=== PATIENT | female | born 1985 | race Caucasian/White ===

== ENCOUNTER 2017-09-08 19:17 | Outpatient (CLI) | payer OTHER ==
[~2017-09-08] VITALS: Ht 149.9 cm; Wt 77.3 kg
[~2017-09-08 19:17] MED LIST: LBT100 PO; MTR600X PO
[2017-09-08 19:34] VITALS: Ht 149.9 cm; Wt 77.3 kg
[2017-09-08] MEDS ORDERED: PREN-83 (19:34)
[2017-09-08] MEDS ORDERED: ACET-1311 PO (19:34)
[2017-09-08 20:34] LABS: BASO % 0.3 %; BASO ABS # 0.03 K/uL (0-0.2); EOS % 1.2 %; EOS ABS # 0.12 K/uL (0-0.5); HEMATOCRIT 32.4 % (37-47); HEMOGLOBIN 10.9 g/dL (12.0-16.0); IG# 0.06 K/uL (0.00-0.02); LYMPH % 27.3 %; LYMPH ABS # 2.77 K/uL (1.2-3.4); MEAN CELL VOLUME 84.4 fL (80-100); MEAN CORPUSCULAR HEMOGLOBIN 28.4 pg (25-34); MEAN CORPUSCULAR HGB CONC 33.6 g/dl (32-36); MEAN PLATELET VOLUME 10.1 fL (7.4-10.4); MONO % 8.6 %; MONO ABS # 0.87 K/uL (0.11-0.59); NEUT ABS # 6.31 K/uL (1.4-6.5); PLATELET COUNT 215 K/uL (130-400); RED CELL DISTRIBUTION WIDTH CV 13.9 % (11.5-14.5); RED CELL DISTRIBUTION WIDTH SD 42.5 fL (36.4-46.3); WHITE BLOOD COUNT 10.16 K/uL (4.8-10.8)
[2017-09-08] MEDS ORDERED: ACETAMINOPHEN/CODEINE 300/30MG TAB PO ONE ×2 (21:15→21:23)
== END 2017-09-09 00:53 | disposition home or self-care (01) ==
LOC: C.LD 19:17 → C.OPB 19:17
PROVIDERS: ATTEND Obstetrics & Gynecology
DX: O99.89 Other specified diseases and conditions complicating pregnancy, childbirth and the puerperium (principal); M54.9 Dorsalgia, unspecified; O36.8190 Decreased fetal movements, unspecified trimester, not applicable or unspecified; Z3A.00 Weeks of gestation of pregnancy not specified

== ENCOUNTER 2017-09-17 14:54 | Emergency (ER) | payer OTHER ==
[~2017-09-17] VITALS: Ht 149.9 cm; Wt 78.6 kg
[~2017-09-17 14:54] MED LIST changes: +ACET-1311 PO; -LBT100 PO; -MTR600X PO
[2017-09-17 15:11] VITALS: TEMP 36.9; Ht 149.9 cm; Wt 78.6 kg
[2017-09-17 15:57] LABS: BASO % 0.1 %; BASO ABS # 0.01 K/uL (0-0.2); EOS % 0.8 %; EOS ABS # 0.07 K/uL (0-0.5); HEMATOCRIT 32.4 % (37-47); HEMOGLOBIN 10.9 g/dL (12.0-16.0); IG# 0.03 K/uL (0.00-0.02); LYMPH % 22.6 %; LYMPH ABS # 2.06 K/uL (1.2-3.4); MEAN CELL VOLUME 83.3 fL (80-100); MEAN CORPUSCULAR HGB CONC 33.6 g/dl (32-36); MEAN PLATELET VOLUME 10.2 fL (7.4-10.4); MONO % 6.9 %; MONO ABS # 0.63 K/uL (0.11-0.59); NEUT % 69.3 %; NEUT ABS # 6.32 K/uL (1.4-6.5); PLATELET COUNT 232 K/uL (130-400); RED CELL DISTRIBUTION WIDTH CV 14.1 % (11.5-14.5); RED CELL DISTRIBUTION WIDTH SD 42.5 fL (36.4-46.3); WHITE BLOOD COUNT 9.12 K/uL (4.8-10.8)
[2017-09-17 16:11] LABS: INR 0.9 (0.9-1.1); PTT PATIENT 24.3 SECONDS (21.0-31.0)
[2017-09-17 16:18] LABS: ALBUMIN 2.2 gm/dl (3.4-5.0); ALT/SGPT 13 U/L (12-78); AST/SGOT 12 U/L (15-37); BLOOD UREA NITROGEN 8 mg/dl (7-18); CALCIUM 9.1 mg/dl (8.5-10.1); CARBON DIOXIDE 19 mmol/L (21-32); CREATININE 0.54 mg/dl (0.60-1.20); GLUCOSE 84 mg/dl (70-99); LIPASE 201 U/L (73-393); POTASSIUM 3.4 mmol/L (3.5-5.1); SODIUM 136 mmol/L (136-145)
[2017-09-17 16:21] LABS: ALKALINE PHOSPHATASE 110 U/L (45-117)
--- NOTE | 2017-09-17 16:57 | EMERGENCY ROOM VISIT NOTE ---
History Report prepared by Raimundo: Marin Horan Under the Supervision of: Dr. Felix Lopez M.D. First contact with patient: 15:14 Chief Complaint: SHORTNESS OF BREATH Stated Complaint: SOB, REFERRED TO R/O PE History of Present Illness The patient is a 32 year old female who presents to the Emergency Room with complaints of persistent shortness of breath that began this morning while the patient was taking a shower. The patient states that it was difficult to shower secondary to her shortness of breath. She denies any associated chest pain, cough, or lower extremity pain. There were no traumatic accidents that could have caused this pain. The patient is currently 35 weeks . She is P: 3 A:3. The patient notes that she is having Douglas-Jim contractions currently. She has never had this shortness of breath with previous pregnancies. Source of History: patient Onset: This morning Position: chest Quality: other (Shortness of breath) Timing: other (Persistent) Modifying Factors (Worsening): other (Exertion (showering made it worse)) Associated Symptoms: No cough, No chest pain Review of Systems See HPI for pertinent positives & negatives. A total of 10 systems reviewed and were otherwise negative. Past Medical & Surgical Medical Problems: (1) Backache (2) High blood pressure affecting in third trimester, antepartum (3) (4) Uterine contractions at greater than 20 weeks of gestation Old medical records were reviewed. Nurse's notes were reviewed and I agree with. Family History No pertinent family history Social History Smoking Status: Never Smoker Alcohol Use: none Occupation Status: unemployed Current/Historical Medications Scheduled Vit W/ Ferrous Fumara (), 1 TAB PO DAILY Allergies Coded Allergies: No Known Allergies (Verified , ?, 09/17/17) Physical Exam Vital Signs Date Time Temp Pulse Resp B/P (MAP) Pulse Ox O2 Delivery O2 Flow Rate FiO2 09/17/17 17:49 66 18 114/74 98 Room Air 09/17/17 15:11 36.9 95 22 133/85 98 Room Air Physical Exam General: Non-ill appearing young female in no acute distress. HEENT: Normal cephalic atraumatic. Pupils are equal round and reactive to light. Extraocular movements are intact. Oropharynx is pink with moist mucous membranes. No swelling of the mouth lips or tongue. Neck: Supple with a midline trachea. No meningeal signs or stiffness, no JVD or bruits. No Stridor. Chest: Clear to auscultation bilaterally. No wheezes or rhonchi. There is mild tachypnea with movement Heart: regular rate and rhythm. Abdomen: Soft nontender, Gravid uterus, without rebound guarding or rigidity. Extremities: No cyanosis clubbing or edema. No calf tenderness or assymetry Spine/Back. Non tender to palpation. No CVA tenderness Skin: Good turgor without rashes. Neurologic exam: Cranial nerves two through 12 are intact. Motor and sensation are intact and symmetrical throughout. Medical Decision & Procedures ER Provider Diagnostic Interpretation: Radiology results as stated below per my review and radiologist interpretation: (CHEST FOR PE) ANGIO WITH CT DOSE: 254.67 mGy.cm HISTORY: 32 years-old Female presents with acute shortness of breath with TECHNIQUE: Multiple CTA images of the chest were obtained after the intravenous administration of 85 ml Optiray 320. Coronal and sagittal MIPS were obtained from the axial data set and were submitted for review. A dose lowering technique was utilized adhering to the principles of ALARA. COMPARISON: None. FINDINGS: CTA: Heart is normal in size without pericardial effusion. Thoracic aorta is normal in course and caliber without aneurysm or dissection. Imaged great vessels appear to be patent. The pulmonary arterial tree is opacified to level of the segmental branches and demonstrates no focal filling defects to suggest pulmonary thromboembolic disease. The distal segmental and subsegmental branches are not well opacified secondary to contrast bolus timing. CT CHEST: Thyroid is homogeneous without dominant nodule. Mildly prominent nonenlarged bilateral axillary lymph nodes are seen measuring up to 7 mm in short axis. There is mild residual thymic tissue of the anterior mediastinum. No pathologically enlarged lymph nodes of the chest identified. There is no pneumothorax, pleural effusion or focal airspace consolidation. Central airways appear patent. Imaged upper abdominal structures demonstrate no acute abnormality. Soft tissues and breast parenchyma appear unremarkable. Bones appear intact and within normal limits. IMPRESSION: No acute intrathoracic abnormality identified, specifically no acute aortic pathology or evidence of pulmonary thromboembolic disease. The above report was generated using voice recognition software. It may contain grammatical, syntax or spelling errors. Electronically signed by: Sriram Norman M.D. 09/17/2017 5:18 PM Dictated Date/Time: 09/17/2017 5:14 PM Laboratory Results 09/17/17 15:41 Red Blood Count 3.89, Mean Corpuscular Volume 83.3, Mean Corpuscular Hemoglobin 28.0, Mean Corpuscular Hemoglobin Concent 33.6, Mean Platelet Volume 10.2, Neutrophils (%) (Auto) 69.3, Lymphocytes (%) (Auto) 22.6, Monocytes (%) (Auto) 6.9, Eosinophils (%) (Auto) 0.8, Basophils (%) (Auto) 0.1, Neutrophils # (Auto) 6.32, Lymphocytes # (Auto) 2.06, Monocytes # (Auto) 0.63, Eosinophils # (Auto) 0.07, Basophils # (Auto) 0.01 09/17/17 15:41 Test 09/17/17 15:41 White Blood Count 9.12 K/uL (4.8-10.8) Red Blood Count 3.89 M/uL (4.2-5.4) Hemoglobin 10.9 g/dL (12.0-16.0) Hematocrit 32.4 % (37-47) Mean Corpuscular Volume 83.3 fL (80-100) Mean Corpuscular Hemoglobin 28.0 pg (25-34) Mean Corpuscular Hemoglobin Concent 33.6 g/dl (32-36) Platelet Count 232 K/uL (130-400) Mean Platelet Volume 10.2 fL (7.4-10.4) Neutrophils (%) (Auto) 69.3 % Lymphocytes (%) (Auto) 22.6 % Monocytes (%) (Auto) 6.9 % Eosinophils (%) (Auto) 0.8 % Basophils (%) (Auto) 0.1 % Neutrophils # (Auto) 6.32 K/uL (1.4-6.5) Lymphocytes # (Auto) 2.06 K/uL (1.2-3.4) Monocytes # (Auto) 0.63 K/uL (0.11-0.59) Eosinophils # (Auto) 0.07 K/uL (0-0.5) Basophils # (Auto) 0.01 K/uL (0-0.2) RDW Standard Deviation 42.5 fL (36.4-46.3) RDW Coefficient of Variation 14.1 % (11.5-14.5) Immature Granulocyte % (Auto) 0.3 % Immature Granulocyte # (Auto) 0.03 K/uL (0.00-0.02) Prothrombin Time 9.7 SECONDS (9.0-12.0) Prothromb Time International Ratio 0.9 (0.9-1.1) Activated Partial Thromboplast Time 24.3 SECONDS (21.0-31.0) Partial Thromboplastin Ratio 0.9 D-Dimer 990 ug/L FEU (0-500) Urine Color YELLOW Urine Appearance CLEAR (CLEAR) Urine pH 7.5 (4.5-7.5) Urine Specific [place] 1.013 (1.000-1.030) Urine Protein NEG (NEG) Urine Glucose (UA) NEG (NEG) Urine Ketones 1+ (NEG) Urine Occult Blood NEG (NEG) Urine Nitrite NEG (NEG) Urine Bilirubin NEG (NEG) Urine Urobilinogen NEG (NEG) Urine Leukocyte Esterase TRACE (NEG) Urine WBC (Auto) 1-5 /hpf (0-5) Urine RBC (Auto) 0-4 /hpf (0-4) Urine Hyaline Casts (Auto) 1-5 /lpf (0-5) Urine Epithelial Cells (Auto) >30 /lpf (0-5) Urine Bacteria (Auto) NEG (NEG) Anion Gap 13.0 mmol/L (3-11) Est Creatinine Clear Calc Drug Dose 135.5 ml/min Estimated GFR () 144.7 Estimated GFR (Non- 124.9 BUN/Creatinine Ratio 15.6 (10-20) Calcium Level 9.1 mg/dl (8.5-10.1) Total Bilirubin 0.2 mg/dl (0.2-1) Direct Bilirubin < 0.1 mg/dl (0-0.2) Aspartate Amino Transf (AST/SGOT) 12 U/L (15-37) Alanine Aminotransferase (ALT/SGPT) 13 U/L (12-78) Alkaline Phosphatase 110 U/L (45-117) Troponin I < 0.015 ng/ml (0-0.045) Total Protein 7.0 gm/dl (6.4-8.2) Albumin 2.2 gm/dl (3.4-5.0) Lipase 201 U/L (73-393) Laboratory studies as stated above per my review. ECG Per My Interpretation Indication: SOB/dyspnea Rate (beats per minute): 72 Rhythm: sinus with SA Findings: other (Mp PVCs, no STD/NANCY) Comparison ECG Date: no prior available ED Course 1516: Past medical records reviewed. The patient was evaluated in room B6, and a complete history and physical examination were performed. 1636: The patient's D-dimer was elevated. I will order a Chest CT. The patient is in agreement. 1747: I discussed the case with Dr. Chao VIDAL. He agrees with the treatment plan. 175: Upon reevaluation, the patient is resting in bed. I discussed the results and treatment plan with her. She verbalized agreement of the treatment plan. The patient was discharged home. Medical Decision Differential Diagnosis includes; cardiac disease, infection, preeclampsia, shortness of breath due to . This patient comes in as described above. She was placed in room B6. She is 35 weeks and has shortness of breath which is primarily dyspnea on exertion. She has no abdominal pain. there has been no fall or trauma. She has had no cough or infectious type symptoms. She has had no gush of fluids or anything to suggest contractions. She did have preeclampsia during her last but has had nosymptoms to suggest this. IV access established. EKG was obtained which does not show any acute ischemic changes or ectopy. Multiple blood testing was obtained. Her d-dimer was mildly elevated in the 900 range. I discussed this with the patient and her and I recommend we do a CAT scan. There is risk with doing the CAT scan to the mother and child with the radiation primarily but there is also risk of missing a pulmonary embolism. The CAT scan was obtained and we did shield the patient he freely consented prior to doing the CAT scan. Fortunately, the CAT scan was unremarkable the patient appears stable. She has no evidence that she has preeclampsia at this point, she has no protein in her urine. She has nothing to suggest acute coronary syndrome or infection. I did discuss case to Dr. Pang and they will follow-up with her this week. She should return to ER if : worsening of symptoms, any new problems or concerns. Medication Reconcilliation Current Medication List: was personally reviewed by me Blood Pressure Screening Patient's blood pressure: Elevated blood pressure Consults Time Called: 1740 Consulting Physician: Dr. Chao VIDAL Returned Call: 1746 I discussed the case with Dr. Chao VIDAL. He agrees with the treatment plan. Impression Primary Impression: SOB (shortness of breath) Additional Impression: Scribe Attestation The scribe's documentation has been prepared under my direction and personally reviewed by me in its entirety. I confirm that the note above accurately reflects all work, treatment, procedures, and medical decision making performed by me. Departure Information Dispostion Home / Self-Care Referrals No Doctor, Assigned (PCP) Forms HOME CARE DOCUMENTATION FORM, IMPORTANT VISIT INFORMATION Patient Instructions My [facility] Additional Instructions Rest. Return if: Worsening of symptoms, chest pain, fever, vaginal bleeding or discharge, contractions, any problems or concerns Follow-up with your doctor in 1-2 days for recheck Problem Qualifiers
[2017-09-17] MEDS ORDERED: OPTIRAY 320 IV PRN (17:15)
--- NOTE | 2017-09-17 17:19 | DIAGNOSTIC IMAGING REPORT ---
(CHEST FOR PE) ANGIO WITH CT DOSE: 254.67 mGy.cm HISTORY: 32 years-old Female presents with acute shortness of breath with TECHNIQUE: Multiple CTA images of the chest were obtained after the intravenous administration of 85 ml Optiray 320. Coronal and sagittal MIPS were obtained from the axial data set and were submitted for review. A dose lowering technique was utilized adhering to the principles of ALARA. COMPARISON: None. FINDINGS: CTA: Heart is normal in size without pericardial effusion. Thoracic aorta is normal in course and caliber without aneurysm or dissection. Imaged great vessels appear to be patent. The pulmonary arterial tree is opacified to level of the segmental branches and demonstrates no focal filling defects to suggest pulmonary thromboembolic disease. The distal segmental and subsegmental branches are not well opacified secondary to contrast bolus timing. CT CHEST: Thyroid is homogeneous without dominant nodule. Mildly prominent nonenlarged bilateral axillary lymph nodes are seen measuring up to 7 mm in short axis. There is mild residual thymic tissue of the anterior mediastinum. No pathologically enlarged lymph nodes of the chest identified. There is no pneumothorax, pleural effusion or focal airspace consolidation. Central airways appear patent. Imaged upper abdominal structures demonstrate no acute abnormality. Soft tissues and breast parenchyma appear unremarkable. Bones appear intact and within normal limits. IMPRESSION: No acute intrathoracic abnormality identified, specifically no acute aortic pathology or evidence of pulmonary thromboembolic disease. The above report was generated using voice recognition software. It may contain grammatical, syntax or spelling errors. Electronically signed by: Sriram Norman M.D. 09/17/2017 5:18 PM Dictated Date/Time: 09/17/2017 5:14 PM
[2017-09-17 17:49] VITALS: BP 114/74; PULSE 66; O2SAT 98
[2017-09-17] MEDS ORDERED: PREN-83 PO (19:34)
== END 2017-09-17 18:04 | disposition home or self-care (01) ==
LOC: C.EDB 14:55
DX: O99.513 Diseases of the respiratory system complicating pregnancy, third trimester (principal); R06.02 Shortness of breath; Z3A.35 35 weeks gestation of pregnancy

== ENCOUNTER 2017-09-25 10:46 | Emergency (ER) | payer OTHER ==
[~2017-09-25] VITALS: Ht 149.9 cm; Wt 79.0 kg
[~2017-09-25 10:46] MED LIST changes: -ACET-1311 PO; +PREN-83 PO
[2017-09-25 10:56] VITALS: TEMP 36.6; Ht 149.9 cm; Wt 79.0 kg
[2017-09-25 12:32] LABS: BASO % 0.1 %; BASO ABS # 0.01 K/uL (0-0.2); EOS % 1.6 %; EOS ABS # 0.13 K/uL (0-0.5); HEMATOCRIT 35.7 % (37-47); IG# 0.03 K/uL (0.00-0.02); LYMPH % 23.7 %; LYMPH ABS # 1.92 K/uL (1.2-3.4); MEAN CELL VOLUME 84.4 fL (80-100); MEAN CORPUSCULAR HEMOGLOBIN 28.4 pg (25-34); MEAN CORPUSCULAR HGB CONC 33.6 g/dl (32-36); MONO % 6.4 %; MONO ABS # 0.52 K/uL (0.11-0.59); NEUT % 67.8 %; NEUT ABS # 5.48 K/uL (1.4-6.5); PLATELET COUNT 247 K/uL (130-400); RED CELL DISTRIBUTION WIDTH CV 14.2 % (11.5-14.5); WHITE BLOOD COUNT 8.09 K/uL (4.8-10.8)
--- NOTE | 2017-09-25 12:41 | DIAGNOSTIC IMAGING REPORT ---
CHEST 2 VIEWS ROUTINE CLINICAL HISTORY: sob recent ct pe neg with same symptoms dyspnea COMPARISON STUDY: No previous studies for comparison. FINDINGS: The bones soft tissues and hemidiaphragms are normal. The cardiomediastinal silhouette is normal. The lungs are clear. The pulmonary vasculature is normal. IMPRESSION: Negative chest. The above report was generated using voice recognition software. It may contain grammatical, syntax or spelling errors. Electronically signed by: Sal Putnam M.D. 09/25/2017 12:40 PM Dictated Date/Time: 09/25/2017 12:39 PM
[2017-09-25 12:50] LABS: ALBUMIN 2.6 gm/dl (3.4-5.0); ALT/SGPT 11 U/L (12-78); AST/SGOT 12 U/L (15-37); BLOOD UREA NITROGEN 6 mg/dl (7-18); CALCIUM 9.3 mg/dl (8.5-10.1); CARBON DIOXIDE 23 mmol/L (21-32); CREATININE 0.44 mg/dl (0.60-1.20); GLUCOSE 61 mg/dl (70-99); LIPASE 180 U/L (73-393); POTASSIUM 3.5 mmol/L (3.5-5.1); SODIUM 136 mmol/L (136-145)
[2017-09-25 12:55] LABS: ALKALINE PHOSPHATASE 140 U/L (45-117); TOTAL PROTEIN 7.6 gm/dl (6.4-8.2)
--- NOTE | 2017-09-25 14:09 | DIAGNOSTIC IMAGING REPORT ---
VENOUS DOPPLER LWR EXT BILA HISTORY: Pain. Edema. le swelling COMPARISON STUDY: None. FINDINGS: There is normal compressibility, flow, and augmentation within the bilateral lower extremity deep venous systems. IMPRESSION: No DVT within the right or left lower extremity. The above report was generated using voice recognition software. It may contain grammatical, syntax or spelling errors. Electronically signed by: Sal Putnam M.D. 09/25/2017 2:08 PM Dictated Date/Time: 09/25/2017 2:06 PM
[2017-09-25 14:32] VITALS: BP 118/75; PULSE 89; O2SAT 99
--- NOTE | 2017-09-25 18:37 | EMERGENCY ROOM VISIT NOTE ---
History Report prepared by Raimundo: Kayleigh Montes De Oca Under the Supervision of: Dr. Chavez Levi D.O. First contact with patient: 11:49 Chief Complaint: SHORTNESS OF BREATH Stated Complaint: SOB - 36 WKS Nursing Triage Summary: Pt reports she has been SOB x1 week. Pt is 36 weeks . Last week she had a CT to rule out a PE and it was negative. Pt was at [facility] this morning and they sent her to be evaluated in ER. Pt is c/o itchiness, reports she had a liver profile drawn at [facility], but results will not be back until tomorrow. Denies contractions. Denies swelling. Denies pain. History of Present Illness The patient is a 32 year old female who presents to the Emergency Room with complaints of constant shortness of breath for the past two weeks. The patient is currently 36 weeks . She is /A3. She has been feeling short of breath for two weeks. She was seen in the ED on 09/17/17 for these symptoms. She had a chest CT at that time which showed a normal aorta and was negative for PE. The patient had an appointment with her ob-online community manager this morning and was still feeling short of breath. The fetus was monitored and was doing fine. She was sent back to the ED today for further evaluation of her symptoms. Her symptoms are better with rest and worsened with exertion. Yesterday she started to feel very itchy all over but denies any other new symptoms. She has no shortness of breath currently with rest. She has had a non-complicated thus far. She denies any chest pain. She is able to lay down without significant shortness of breath. Shortness of breath has not changed over the past 2 weeks. It has not worsened or improved at all. The patient has had preeclampsia with her last but states that her current has been uncomplicated. Pt denies headache, change in vision, fevers, cough, rhinorrhea, chest pain, nausea, vomiting, diarrhea, abdominal pain, pain with urination, melena, abnormal vaginal bleeding or discharge. She denies any recent illness, and any personal history of blood clots or asthma. She denies any family history of heart disease. Source of History: patient Onset: 2 weeks ago Position: chest Quality: other (shortness of breath) Timing: constant Modifying Factors (Worsening): exertion Modifying Factors (Relieving): rest Associated Symptoms: No fevers, No headache, No cough, No chest pain, No nausea, No vomiting, No abdominal pain, No melena, No diarrhea, No urinary symptoms Note: Pt denies change in vision, rhinorrhea, abnormal vaginal bleeding or discharge. She denies any recent illness, and any personal history of blood clots or asthma. She denies any family history of heart disease. Review of Systems See HPI for pertinent positives & negatives. A total of 10 systems reviewed and were otherwise negative. Past Medical & Surgical Medical Problems: (1) Backache (2) High blood pressure affecting in third trimester, antepartum (3) (4) Uterine contractions at greater than 20 weeks of gestation Family History Cancer Stroke Social History Smoking Status: Never Smoker Alcohol Use: none Marital Status: Housing Status: lives with family Occupation Status: unemployed Current/Historical Medications Scheduled Vit W/ Ferrous Fumara (), 1 TAB PO DAILY Allergies Coded Allergies: No Known Allergies (Verified , ?, 09/17/17) Physical Exam Vital Signs Date Time Temp Pulse Resp B/P (MAP) Pulse Ox O2 Delivery O2 Flow Rate FiO2 09/25/17 14:32 89 17 118/75 99 09/25/17 13:12 89 17 118/75 99 09/25/17 10:56 36.6 98 22 127/91 97 Room Air Physical Exam GENERAL: Sitting up in bed, alert, talking in full sentences, well appearing, well nourished, no distress, non-toxic EYE EXAM: normal conjunctiva. OROPHARYNX: no exudate, no erythema, lips, buccal mucosa, and tongue normal and mucous membranes are moist NECK: supple, no nuchal rigidity, no adenopathy, non-tender, no JVD LUNGS: Clear to auscultation. Normal chest wall mechanics HEART: no murmurs, S1 normal and S2 normal ABDOMEN: Gravid uterus up to xiphoid process, non-tender, normo-active bowel sounds, no rebound or guarding. BACK: Back is symmetrical on inspection and there is no deformity, no midline tenderness, no CVA tenderness. SKIN: no rashes and no bruising UPPER EXTREMITIES: upper extremities are grossly normal. Radial pulses equal bilaterally. LOWER EXTREMITIES: No pitting edema, calves equal bilaterally. NEURO EXAM: Normal sensorium, cranial nerves II-XII grossly intact, normal speech, no gross weakness of arms, no gross weakness of legs. Medical Decision & Procedures ER Provider Diagnostic Interpretation: Radiology results as stated below per my review and the radiologist's interpretation: CHEST 2 VIEWS ROUTINE CLINICAL HISTORY: sob recent ct pe neg with same symptoms dyspnea COMPARISON STUDY: No previous studies for comparison. FINDINGS: The bones soft tissues and hemidiaphragms are normal. The cardiomediastinal silhouette is normal. The lungs are clear. The pulmonary vasculature is normal. IMPRESSION: Negative chest. The above report was generated using voice recognition software. It may contain grammatical, syntax or spelling errors. Electronically signed by: Sal Putnam M.D. 09/25/2017 12:40 PM Dictated Date/Time: 09/25/2017 12:39 PM VENOUS DOPPLER LWR EXT BILA HISTORY: Pain. Edema. le swelling COMPARISON STUDY: None. FINDINGS: There is normal compressibility, flow, and augmentation within the bilateral lower extremity deep venous systems. IMPRESSION: No DVT within the right or left lower extremity. The above report was generated using voice recognition software. It may contain grammatical, syntax or spelling errors. Electronically signed by: Sal Putnam M.D. 09/25/2017 2:08 PM Dictated Date/Time: 09/25/2017 2:06 PM Laboratory Results 09/25/17 12:20 Red Blood Count 4.23, Mean Corpuscular Volume 84.4, Mean Corpuscular Hemoglobin 28.4, Mean Corpuscular Hemoglobin Concent 33.6, Mean Platelet Volume 11.0, Neutrophils (%) (Auto) 67.8, Lymphocytes (%) (Auto) 23.7, Monocytes (%) (Auto) 6.4, Eosinophils (%) (Auto) 1.6, Basophils (%) (Auto) 0.1, Neutrophils # (Auto) 5.48, Lymphocytes # (Auto) 1.92, Monocytes # (Auto) 0.52, Eosinophils # (Auto) 0.13, Basophils # (Auto) 0.01 09/25/17 12:20 Test 09/25/17 12:20 09/25/17 12:22 White Blood Count 8.09 K/uL (4.8-10.8) Red Blood Count 4.23 M/uL (4.2-5.4) Hemoglobin 12.0 g/dL (12.0-16.0) Hematocrit 35.7 % (37-47) Mean Corpuscular Volume 84.4 fL (80-100) Mean Corpuscular Hemoglobin 28.4 pg (25-34) Mean Corpuscular Hemoglobin Concent 33.6 g/dl (32-36) Platelet Count 247 K/uL (130-400) Mean Platelet Volume 11.0 fL (7.4-10.4) Neutrophils (%) (Auto) 67.8 % Lymphocytes (%) (Auto) 23.7 % Monocytes (%) (Auto) 6.4 % Eosinophils (%) (Auto) 1.6 % Basophils (%) (Auto) 0.1 % Neutrophils # (Auto) 5.48 K/uL (1.4-6.5) Lymphocytes # (Auto) 1.92 K/uL (1.2-3.4) Monocytes # (Auto) 0.52 K/uL (0.11-0.59) Eosinophils # (Auto) 0.13 K/uL (0-0.5) Basophils # (Auto) 0.01 K/uL (0-0.2) RDW Standard Deviation 43.0 fL (36.4-46.3) RDW Coefficient of Variation 14.2 % (11.5-14.5) Immature Granulocyte % (Auto) 0.4 % Immature Granulocyte # (Auto) 0.03 K/uL (0.00-0.02) Anion Gap 10.0 mmol/L (3-11) Est Creatinine Clear Calc Drug Dose 166.7 ml/min Estimated GFR () > 150.0 Estimated GFR (Non- 133.6 BUN/Creatinine Ratio 14.5 (10-20) Calcium Level 9.3 mg/dl (8.5-10.1) Total Bilirubin 0.3 mg/dl (0.2-1) Direct Bilirubin < 0.1 mg/dl (0-0.2) Aspartate Amino Transf (AST/SGOT) 12 U/L (15-37) Alanine Aminotransferase (ALT/SGPT) 11 U/L (12-78) Alkaline Phosphatase 140 U/L (45-117) Troponin I < 0.015 ng/ml (0-0.045) Total Protein 7.6 gm/dl (6.4-8.2) Albumin 2.6 gm/dl (3.4-5.0) Lipase 180 U/L (73-393) Urine Color YELLOW Urine Appearance CLEAR (CLEAR) Urine pH >= 9.0 (4.5-7.5) Urine Specific [place] 1.012 (1.000-1.030) Urine Protein NEG (NEG) Urine Glucose (UA) NEG (NEG) Urine Ketones NEG (NEG) Urine Occult Blood NEG (NEG) Urine Nitrite NEG (NEG) Urine Bilirubin NEG (NEG) Urine Urobilinogen NEG (NEG) Urine Leukocyte Esterase TRACE (NEG) Urine WBC (Auto) 1-5 /hpf (0-5) Urine RBC (Auto) 0-4 /hpf (0-4) Urine Hyaline Casts (Auto) 1-5 /lpf (0-5) Urine Epithelial Cells (Auto) >30 /lpf (0-5) Urine Bacteria (Auto) NEG (NEG) Laboratory results per my review. ECG Per My Interpretation Indication: SOB/dyspnea Rate (beats per minute): 78 Rhythm: normal sinus Findings: other (normal axis; flipped T-waves in lead 3; normal intervals) Comparison ECG Date: 09/17/17 Change: no significant change ED Course ED COURSE: Vital signs were reviewed and showed normal vitals. The patients medical record was reviewed The above diagnostic studies were performed and reviewed. ED treatments and interventions as stated above. 1155: The patient was evaluated in room B6. A complete history and physical examination was performed. 1326: I discussed the patient's case with Dr. Kaba's PA-Bubba from [facility] ob- online community manager. She sent the patient to the ED for further evaluation because of her shortness of breath. 1419: Upon reevaluation, the patient is feeling better and resting comfortably. I discussed my findings with the patient and she understands and agrees with the treatment plan. Based on the patients age, coexisting illnesses, exam and lab findings the decision to treat as an outpatient was made. The patient remained stable while under my care. The patient appeared well at the time of discharge. Medical Decision Differential diagnoses includes but is not limited to pneumonia, bronchitis, COPD/Asthma exacerbation, pneumothorax, pulmonary embolism, congestive heart failure, acute coronary syndrome. Patient is a 32-year-old female who presents to ER for dyspnea on exertion. She was referred in by OB. She was here 8 days ago with the same complaint. Symptoms have not changed in any way. She was evaluated at that time and had a CT PE which was negative. CT PE did show no clots, infection and a normal aorta. CBC along with BMP, LFTs, bilirubin and lipase was normal. Troponin was negative with symptoms present for 2 weeks. I did not repeat a d-dimer or CT PE as her symptoms have been unchanged over the past 2 weeks. Chest x-ray shows no cardiomegaly infiltrate, pneumothorax or pleural effusion. EKG was unremarkable and unchanged from previous. UA was unremarkable. Patient's vitals were stable. She is not hypoxic. There is no signs of pericardial effusion on recent CT, no signs of pericarditis or myocarditis. Discussed with OB. Patient was discharged follow-up with PCP and OB as an outpatient. She may benefit from an echo as an outpatient. Discussed with Pt concerning signs and symptoms to watch out for. Pt was instructed to follow up with their PCP and discussed with the patient their option to return to the ED at anytime for persistent or worsening symptoms. The appropriate anticipatory guidance and out- patient management, including indications for return to the emergency department , were explained at length to the patient and understood. Medication Reconcilliation Current Medication List: was personally reviewed by me Blood Pressure Screening Patient's blood pressure: Normal blood pressure Consults Time Called: 1320 Consulting Physician: Dr. Merced PARHAM Returned Call: 1326 I discussed the patient's case with Dr. Merced PARHAM from [facility] ob-online community manager. She sent the patient to the ED for further evaluation because of her shortness of breath. Impression Primary Impression: Dyspnea Scribe Attestation The scribe's documentation has been prepared under my direction and personally reviewed by me in its entirety. I confirm that the note above accurately reflects all work, treatment, procedures, and medical decision making performed by me. Departure Information Dispostion Home / Self-Care Referrals No Doctor, Assigned (PCP) Alfonso Whitlock M.D. Forms HOME CARE DOCUMENTATION FORM, IMPORTANT VISIT INFORMATION Patient Instructions ED Dyspnea Shortness of Breath, My [facility] Additional Instructions Please follow up with your primary care doctor with in the next 24 hours. Any worsening of your symptoms, please return to the ED immediately. This includes any fevers greater than 100.4, passing out, chest pain, shortness breath, persistent nausea, vomiting, unable to eat or drink, or any other concerning signs or symptoms from your standpoint. Again please follow-up with your primary care doctor or OB in the next 24 hours. You may benefit from an outpatient echo. Please try to refrain from any excessive physical activity. Problem Qualifiers Primary Impression: Dyspnea Dyspnea type: dyspnea on exertion Qualified Codes: R06.09 - Other forms of dyspnea
== END 2017-09-25 14:32 | disposition home or self-care (01) ==
LOC: C.EDB 10:49
DX: R60.9 Edema, unspecified (principal); O99.513 Diseases of the respiratory system complicating pregnancy, third trimester; Z3A.36 36 weeks gestation of pregnancy; Z82.3 Family history of stroke

== ENCOUNTER 2017-10-08 10:50 | Outpatient (CLI) | payer OTHER ==
[~2017-10-08] VITALS: Ht 149.9 cm; Wt 79.5 kg
[2017-10-08] MEDS ORDERED: ONDANSETRON 4 MG TAB PO PRN (11:30)
[2017-10-08] MEDS ORDERED: ACETAMINOPHEN 325 MG TAB PO PRN (11:30)
[2017-10-08 11:48] LABS: BASO % 0.3 %; BASO ABS # 0.02 K/uL (0-0.2); EOS % 0.6 %; EOS ABS # 0.04 K/uL (0-0.5); HEMATOCRIT 32.9 % (37-47); IG# 0.01 K/uL (0.00-0.02); LYMPH % 25.1 %; LYMPH ABS # 1.73 K/uL (1.2-3.4); MEAN CELL VOLUME 81.4 fL (80-100); MEAN CORPUSCULAR HEMOGLOBIN 27.2 pg (25-34); MEAN CORPUSCULAR HGB CONC 33.4 g/dl (32-36); MEAN PLATELET VOLUME 10.9 fL (7.4-10.4); MONO % 5.9 %; MONO ABS # 0.41 K/uL (0.11-0.59); NEUT ABS # 4.69 K/uL (1.4-6.5); PLATELET COUNT 200 K/uL (130-400); RED CELL DISTRIBUTION WIDTH SD 41.5 fL (36.4-46.3)
[2017-10-08 11:51] VITALS: Ht 149.9 cm; Wt 79.5 kg
[2017-10-08 12:30] LABS: CREATININE 0.55 mg/dl (0.60-1.20)
[2017-10-08 13:17] LABS: ALBUMIN 2.2 gm/dl (3.4-5.0); POTASSIUM 3.8 mmol/L (3.5-5.1); TOTAL PROTEIN 6.7 gm/dl (6.4-8.2)
[2017-10-08] MEDS ORDERED: FRRS300 MT (15:52)
--- NOTE | 2017-10-08 16:15 | Discharge Instructions ---
Discharge Instructions Date of Service Oct 08, 2017. Admission Reason for Admission: Evaluate Blood Pressure Discharge Discharge Diagnosis / Problem: Dizzziness Discharge Goals Goal(s): Continuing OB care Medications Continue Dispensed Medications: other Activity Recommendations Activity Limitations: as noted below SPECIAL CARE INSTRUCTIONS: Call Doctor if: * Regular contractions every 5 minutes or greater than contractions in one hour. * Bleeding * Water breaks or is leaking * Decreased movement * Fever >100.4 degrees F * Pain not relieved by routine measures or pain medication ordered. FOLLOW UP VISIT: Return to Labor and Delivery on for /call for appointment time . Follow-up Visit with: When: . Current Hospital Diet Patient's current hospital diet: Discharge Diet Recommended Diet: Regular Diet Pending Studies Studies pending at discharge: no Medical Emergencies . Who to Call and When: Medical Emergencies: If at any time you feel your situation is an emergency, please call 911 immediately. . Non-Emergent Contact Non-Emergency issues call your: Specialist Call Non-Emergent contact if: temperature is above 100.5, your pain is not controlled . . "Provider Documentation" section prepared by Fer Hill. .
--- NOTE | 2017-10-08 16:20 | ECHOCARDIOGRAM REPORT ---
*NOTICE TO RECEIVING [employer] This information is strictly Confidential and protected under [place] law. [place] law prohibits you from making any further disclosure of this information unless further disclosure is expressly permitted by the written consent of the person to whom it pertains or is authorized by law. A general authorization for the release of medical or other information is not sufficient for this purpose. Hospital accepts no responsibility if the information is made available to any other person, INCLUDING THE PATIENT. Interpretation Summary * Name: CRISS NICOLE Study Date: 10/08/2017 02:43 PM BP: 142/101 mmHg * Patient Location: [facility] HR: 77 * : 1985 (M/d/yyyy) Gender: Female Height: 55 in * Age: 32 yrs Ethnicity: CA Weight: 175 lb * Ordering Physician: Ti Barahona DO * Performed By: Garima Cardoso RDCS * * Reason For Study: Shortness of Breath * BSA: 1.7 m2 * -- Conclusions -- * Structurally normal. Procedure Details * A complete two-dimensional transthoracic echocardiogram was performed (2D, M-mode, Doppler and color flow Doppler). Left Ventricle * The left ventricle is normal in size. * There is normal left ventricular wall thickness. * Ejection Fraction = 60-65%. * Left ventricular systolic function is normal. * No segmental left ventricular wall motion abnormalities are noted. * The left ventricular wall motion is normal. Right Ventricle * The right ventricular cavity size is normal (basal dimension <4.2 cm in right ventricular apical 4-chamber view). * The right ventricular systolic function is normal as assessed by tricuspid annular plane systolic excursion (TAPSE) (normal >1.5 cm). Atria * The left atrial size is normal. * Right atrial size is normal. * No ASD detected; PFO is not assessed. Mitral Valve * The mitral valve is normal in structure and function. Tricuspid Valve * The tricuspid valve is normal in structure and function. Aortic Valve * The aortic valve is normal in structure and function. Pulmonic Valve * The pulmonary valve is not well seen, but the Doppler examination is normal without significant regurgitation or stenosis. Great Vessels * The aortic root is normal size. Pericardium/Pleural * There is no pericardial effusion. Left Ventricular Diastolic Function * Pulse wave TDI of the anterior and posterior mitral annulas demonstrates normal LV relaxation MMode 2D Measurements and Calculations IVSd 1.0 cm IVSs 1.1 cm LVIDd 3.3 cm LVIDs 2.0 cm LVPWd 1.1 cm LVPWs 1.6 cm IVS/LVPW 0.92 FS 39.8 % EDV(Teich) 45.3 ml ESV(Teich) 12.9 ml EF(Teich) 71.6 % EDV(cubed) 37.2 ml ESV(cubed) 8.1 ml EF(cubed) 78.2 % % IVS thick 11.0 % % LVPW thick 47.3 % LV mass(C)d 102.7 grams LV mass(C)dI 62.0 grams/m\S\2 LV mass(C)s 81.6 grams LV mass(C)sI 49.3 grams/m\S\2 SV(Teich) 32.5 ml SI(Teich) 19.6 ml/m\S\2 SV(cubed) 29.1 ml SI(cubed) 17.5 ml/m\S\2 Ao root diam 2.6 cm Ao root area 5.4 cm\S\2 ACS 1.6 cm LA dimension 2.4 cm LA/Ao 0.91 LVAd ap4 24.9 cm\S\2 LVLd ap4 7.9 cm EDV(MOD-sp4) 65.4 ml EDV(sp4-el) 66.5 ml LVAs ap4 14.8 cm\S\2 LVLs ap4 6.7 cm ESV(MOD-sp4) 28.9 ml ESV(sp4-el) 27.5 ml EF(MOD-sp4) 55.8 % EF(sp4-el) 58.7 % LVAd ap2 23.2 cm\S\2 LVLd ap2 7.9 cm EDV(MOD-sp2) 63.0 ml EDV(sp2-el) 58.1 ml LVAs ap2 12.8 cm\S\2 LVLs ap2 6.5 cm ESV(MOD-sp2) 23.6 ml ESV(sp2-el) 21.3 ml EF(MOD-sp2) 62.5 % EF(sp2-el) 63.4 % LVLd %diff -0.21 % EDV(MOD-bp) 63.0 ml LVLs %diff -3.93 % ESV(MOD-bp) 25.3 ml EF(MOD-bp) 59.9 % SV(MOD-sp4) 36.5 ml SI(MOD-sp4) 22.1 ml/m\S\2 SV(MOD-sp2) 39.3 ml SI(MOD-sp2) 23.8 ml/m\S\2 SV(MOD-bp) 37.8 ml SI(MOD-bp) 22.8 ml/m\S\2 SV(sp4-el) 39.0 ml SI(sp4-el) 23.6 ml/m\S\2 SV(sp2-el) 36.8 ml SI(sp2-el) 22.2 ml/m\S\2 Doppler Measurements and Calculations MV E max earlene 79.3 cm/sec MV A max earlene 91.1 cm/sec MV E/A 0.87 MV dec time 0.19 sec Ao V2 max 116.5 cm/sec Ao max PG 5.4 mmHg Ao max PG (full) 1.5 mmHg LV V1 max PG 3.9 mmHg LV V1 max 99.2 cm/sec PA V2 max 107.0 cm/sec PA max PG 4.6 mmHg PI max earlene 138.9 cm/sec PI max PG 7.7 mmHg PI dec slope 53.6 cm/sec\S\2 PI P1/2t 758.4 msec
--- NOTE | 2017-10-08 16:36 | CARDIOLOGY CONSULTATION ---
DATE OF CONSULTATION: 10/08/2017 CONSULTATION REQUESTED BY: Dr. Hill. REASON FOR CONSULTATION: Shortness of breath and abnormal EKG. HISTORY OF PRESENT ILLNESS: Mrs. Pretty is a very pleasant 32-year-old woman who was admitted to labor and delivery at [facility] for evaluation of shortness of breath. Of note, the patient is having shortness of breath for almost the last month now. She is now approximately 38 weeks and she states that she has been very short of breath with minimal activity over the last several weeks. She states that even the slightest activity will make her short of breath. She has actually been evaluated in the Emergency Department at [facility] repeatedly and even had a CTA of her chest performed on 09/17/2017 which was unremarkable. Since she was having continued shortness of breath she was instructed to come into the hospital. A 12-lead EKG was performed which was read as possible LVH and cardiology was consulted. Currently, the patient states that she is doing okay at rest but states that she always feels okay at rest. She has not had any significant chest pain; however, this morning she states that her shortness of breath did seem a little bit more worse than normal. She got a little lightheaded with it and just did not feel well. She took her blood pressure at home and it was slightly elevated, so that is why she called OB and she was admitted at that time, but again she is without complaint at rest and states that she did not have symptoms like this with her 3 previous pregnancies, but she does note that she does appear to be carrying the baby much higher this than she had in the past. PAST SURGICAL HISTORY: [place] tooth extraction. MEDICAL ILLNESSES: Denies. SOCIAL HISTORY: Denies any alcohol, tobacco or recreational drug use. She is . She lives at home with her . She has 3 children. Again, she is 38 weeks . 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 FAMILY HISTORY: Denies any premature coronary artery disease or sudden cardiac . ALLERGIES: No known drug allergies. MEDICATIONS AN OUTPATIENT: vitamin. REVIEW OF SYSTEMS: As per HPI, all other review of systems reviewed and negative at this time. PHYSICAL EXAMINATION: VITALS: Temperature afebrile, pulse 89, respiratory rate 14, blood pressure 142/81. GENERAL: Awake, alert, oriented x3 in no acute distress. HEENT: Normocephalic, atraumatic. Pupils equal, round react to light and accommodation. Extraocular muscles intact. Anicteric sclerae. Moist mucous membranes. NECK: No JVD, no bruit. CARDIOVASCULAR: Regular. No S4. Normal S1 and S2. No S3. No murmurs, rubs or gallops. PULMONARY: Poor air movement at the bases, otherwise clear. No rales, rhonchi, or wheezing. ABDOMEN: Bowel sounds x4, soft. No rebound, guarding, tenderness. No organomegaly. EXTREMITIES: No clubbing, cyanosis or edema. +2 pedal pulses bilaterally. SKIN: Warm and dry. TEST RESULTS: A 12-lead EKG performed upon presentation independently reviewed at this time shows sinus rhythm with sinus arrhythmia at 82 beats per minute, normal axis, normal intervals, minimal voltage criteria for LVH is present. No signs of active ischemia. No significant change compared to previous study of 09/25/2017. A 2D echocardiogram performed at the bedside official report to follow shows normal LV chamber size and wall thickness, normal LV systolic function, EF 60-65%, normal RV systolic function. No significant valvular pathology. IMPRESSION: 1. Dyspnea with exertion. 2. Structurally normal heart by echocardiogram. RECOMMENDATIONS: It was my pleasure to see Mrs. Pretty in consultation today. The patient and her were counseled. Given the fact that the echocardiogram is unremarkable, I do not see any significant cardiac component to her shortness of breath. Given the fact that she is 38 weeks and does not have any ischemic EKG, no further cardiac testing or intervention is necessary at this time. Theoretically even if the patient was having a myocardial infarction at this point, which obviously she is not, but if she was the fetus's stem cells would actually repair her myocardium on their own and again I believe the risk of any further radiographic exposure to the mother and the fetus would outweigh the benefits. So, no medication changes will be made at this time. No further testing will be performed. Feel free to call with any further questions or concerns.
== END 2017-10-08 16:25 | disposition home or self-care (01) ==
LOC: C.OPB 10:50 → C.LD 10:51 → C.OPB 16:25
PROVIDERS: ATTEND Obstetrics & Gynecology
DX: O99.89 Other specified diseases and conditions complicating pregnancy, childbirth and the puerperium (principal); R06.00 Dyspnea, unspecified; R42 Dizziness and giddiness; R94.31 Abnormal electrocardiogram [ECG] [EKG]; Z3A.38 38 weeks gestation of pregnancy

== ENCOUNTER 2017-10-16 16:48 | Inpatient (IN) | payer OTHER ==
[~2017-10-16] VITALS: Ht 149.9 cm; Wt 79.5 kg
[~2017-10-16 16:48] MED LIST changes: +FRRS300 MT
[2017-10-16] MEDS ORDERED: LACTATED RINGER'S 1000ML 1,000 ML IV PRN (17:36)
[2017-10-16] MEDS ORDERED: LACTATED RINGER'S 1000ML 1,000 ML IV SCH (17:36)
[2017-10-16] MEDS ORDERED: LACTATED RINGER'S 1000ML 500 ML IV PRN (17:38)
[2017-10-16] MEDS ORDERED: OXYTOCIN 30 UNITS/500ML NSS IV PRN ×2 (17:45→22:00)
[2017-10-16 17:59] LABS: HEMATOCRIT 35.3 % (37-47); HEMOGLOBIN 11.8 g/dL (12.0-16.0); MEAN CELL VOLUME 83.1 fL (80-100); MEAN CORPUSCULAR HEMOGLOBIN 27.8 pg (25-34); MEAN CORPUSCULAR HGB CONC 33.4 g/dl (32-36); MEAN PLATELET VOLUME 11.2 fL (7.4-10.4); NUCLEATED RED BLOOD CELL ABS 0.05 K/uL (0-0); PLATELET COUNT 189 K/uL (130-400); RED CELL DISTRIBUTION WIDTH CV 15.2 % (11.5-14.5); RED CELL DISTRIBUTION WIDTH SD 43.7 fL (36.4-46.3); WHITE BLOOD COUNT 9.35 K/uL (4.8-10.8)
[2017-10-16 18:09] LABS: INR 0.9 (0.9-1.1); PTT PATIENT 25.9 SECONDS (21.0-31.0)
[2017-10-16 18:30] LABS: ALT/SGPT 12 U/L (12-78); AST/SGOT 13 U/L (15-37); BLOOD UREA NITROGEN 8 mg/dl (7-18); CALCIUM 9.3 mg/dl (8.5-10.1); CARBON DIOXIDE 22 mmol/L (21-32); GLUCOSE 74 mg/dl (70-99); POTASSIUM 3.9 mmol/L (3.5-5.1); SODIUM 136 mmol/L (136-145)
[2017-10-16 19:14] VITALS: Ht 149.9 cm; Wt 79.5 kg
[2017-10-16] MEDS ORDERED: LANOLIN OINT EXT PRN (22:00)
[2017-10-16] MEDS ORDERED: ACETAMINOPHEN 325 MG TAB PO PRN (22:00)
[2017-10-16] MEDS ORDERED: SUPERCREAM 0.870 % 15GM JAR EXT PRN (22:00)
[2017-10-16] MEDS ORDERED: DIPHTHERIA/TETANUS/PERTUSSIS 0.5 ML SYR/VIAL IM. ONE (22:00)
[2017-10-16] MEDS ORDERED: OXYCODONE/ACETAMINOPHEN 5-325 TAB PO PRN (22:00)
[2017-10-16] MEDS ORDERED: BENZOCAINE 20% AER SPR 82.5 GM CAN EXT PRN (22:00)
[2017-10-16] MEDS ORDERED: KETOROLAC TROMETHAMINE 30 MG/ML VIAL IV. PRN (22:00)
[2017-10-16] MEDS ORDERED: HYDROCORTISONE ACETATE 25 MG SUPP PR PRN (22:00)
--- NOTE | 2017-10-16 22:36 | DELIVERY SUMMARY ---
DATE OF OPERATION: 10/16/2017 TIME OF DELIVERY: 2137. DELIVERY OF PLACENTA: 2140. DELIVERY NOTE: The patient is a 32-year-old 7, para 3 at 39 weeks' gestation, who was admitted to labor and delivery on the afternoon of 10/16/2017 for an induction of labor secondary to elevated blood pressures in the office. PIH labs were normal. She was began on oxytocin per protocol. Artificial rupture of membranes was performed at 1950 with clear amniotic fluid noted. She reached complete dilation at 2130 and pushed to delivery at 2137. She delivered a viable male in the right occiput anterior position to an intact perineum. The baby was delivered and placed on the patient's abdomen. Cord was clamped x2 and cut. Apgars were 8 at 1 minute and 9 at 5 minutes. Please see nursing notes for further baby assessment. Cord blood was then obtained and an intact placenta with 3-vessel cord was delivered at 2140. Oxytocin infusion was then begun. The lower uterine segment and vagina was cleared of any blood clots and debris. Exploration of the perineum noted no lacerations. Estimated blood loss was 250 mL. All sponge and instrument counts were found to be correct x2. Both the patient and baby tolerated the delivery well and were in recovery with stable vital signs. I attest to the content of the Intraoperative Record and any orders documented therein. Any exception s are noted below.
[2017-10-17] VITALS (7 sets, daily range): BP systolic 114–153; BP diastolic 74–94; PULSE 70–98; TEMP 36.4–36.8; O2SAT 97–99
[2017-10-17] MEDS: IBUPROFEN 600 MG TAB PO PRN ×4 (03:51→20:16)
[2017-10-17] MEDS: PRENATAL VITAMIN TAB PO SCH (08:14)
[2017-10-17] MEDS: FERROUS SULFATE 325 MG TAB PO SCH (08:14)
[2017-10-17] MEDS: DOCUSATE SODIUM 100 MG CAP PO SCH ×2 (08:14→20:16)
[2017-10-17 08:37] LABS: HEMATOCRIT 32.2 % (37-47); HEMOGLOBIN 10.3 g/dL (12.0-16.0)
--- NOTE | 2017-10-17 09:58 | OB/GYN Progress Note ---
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 Subjective conversation w/ patient, physical exam Ambulation: ambulating normally Voiding: no voiding problems Passing Gas: Yes Diet Tolerance: Regular Diet Lochia: Moderate Feeding Type: Breast Feeding Review of Systems Constitutional: No fever, No chills, No sweats, No weight loss, No weakness, No fatigue, No problem reported Respiratory: No cough, No sputum, No wheezing, No shortness of breath, No dyspnea on exertion, No dyspnea at rest, No hemoptysis, No problem reported Cardiac: No chest pain, No orthopnea, No PND, No edema, No claudication, No palpitations, No problem reported Breast: No see HPI, No breast lump, No change in shape, No nipple discharge, No breast pain, No problem reported Abdomen: No pain, No nausea, No vomiting, No diarrhea, No constipation, No GI bleeding, No problem reported Female : No see HPI, No dysuria, No urinary frequency, No hematuria, No incontinence, No abnormal vaginal bleeding, No vaginal discharge, No problem reported Objective Vital Signs Date Time Temp Pulse Resp B/P (MAP) Pulse Ox O2 Delivery O2 Flow Rate FiO2 10/17/17 03:45 36.5 70 18 114/74 (87) Room Air 10/17/17 00:15 Room Air 10/17/17 00:15 36.5 88 18 129/83 (98) 99 Room Air Physical Exam General Appearance: WELL-APPEARING, WD/WN, NO APPARENT DISTRESS Respiratory/Chest: chest non-tender, lungs clear, normal breath sounds Cardiovascular: regular rate, rhythm, no edema, no gallop Abdomen: normal bowel sounds, non tender, soft Fundus: Firm Extremities: normal range of motion, non-tender, normal inspection Laboratory Results Last 24 Hours Test 10/16/17 17:44 10/17/17 08:17 White Blood Count 9.35 K/uL Red Blood Count 4.25 M/uL Hemoglobin 11.8 g/dL 10.3 g/dL Hematocrit 35.3 % 32.2 % Mean Corpuscular Volume 83.1 fL Mean Corpuscular Hemoglobin 27.8 pg Mean Corpuscular Hemoglobin Concent 33.4 g/dl RDW Standard Deviation 43.7 fL RDW Coefficient of Variation 15.2 % Platelet Count 189 K/uL Mean Platelet Volume 11.2 fL Nucleated RBC Absolute Count (auto) 0.05 K/uL Nucleated Red Blood Cells % 0.5 % Prothrombin Time 9.7 SECONDS Prothromb Time International Ratio 0.9 Activated Partial Thromboplast Time 25.9 SECONDS Partial Thromboplastin Ratio 1.0 Sodium Level 136 mmol/L Potassium Level 3.9 mmol/L Chloride Level 106 mmol/L Carbon Dioxide Level 22 mmol/L Anion Gap 9.0 mmol/L Blood Urea Nitrogen 8 mg/dl Creatinine 0.60 mg/dl Estimated GFR () 139.8 Estimated GFR (Non- 120.6 BUN/Creatinine Ratio 12.9 Random Glucose 74 mg/dl Uric Acid 4.0 mg/dl Calcium Level 9.3 mg/dl Aspartate Amino Transf (AST/SGOT) 13 U/L Alanine Aminotransferase (ALT/SGPT) 12 U/L Lactate Dehydrogenase 160 U/L Assessment and Plan Day Number: 1 Continue Routine Care: Vd Day #1 pt doing well no complaints disch tomorrow
[2017-10-17] MEDS ORDERED: BISACODYL 5 MG TABEC PO SCH (20:00)
[2017-10-18] MEDS: IBUPROFEN 600 MG TAB PO PRN (05:05)
[2017-10-18 06:46] LABS: HEMATOCRIT 31.2 % (37-47); HEMOGLOBIN 10.2 g/dL (12.0-16.0); MEAN CELL VOLUME 84.3 fL (80-100); MEAN CORPUSCULAR HEMOGLOBIN 27.6 pg (25-34); MEAN CORPUSCULAR HGB CONC 32.7 g/dl (32-36); MEAN PLATELET VOLUME 10.7 fL (7.4-10.4); PLATELET COUNT 174 K/uL (130-400); RED CELL DISTRIBUTION WIDTH CV 16.1 % (11.5-14.5); RED CELL DISTRIBUTION WIDTH SD 46.4 fL (36.4-46.3); WHITE BLOOD COUNT 9.08 K/uL (4.8-10.8)
[2017-10-18] MEDS ORDERED: BISACODYL 10 MG SUPP PR PRN (07:00)
[2017-10-18 08:00] VITALS: BP 121/72; PULSE 86; TEMP 36.7
[2017-10-18] MEDS: PRENATAL VITAMIN TAB PO SCH (08:35)
[2017-10-18] MEDS: DOCUSATE SODIUM 100 MG CAP PO SCH (08:35)
[2017-10-18] MEDS: FERROUS SULFATE 325 MG TAB PO SCH (08:35)
[2017-10-18] MEDS ORDERED: MTR600X PO (09:00)
--- NOTE | 2017-10-18 09:02 | Discharge Instructions ---
Discharge Instructions Date of Service Oct 18, 2017. Admission Reason for Admission: Prolonged Monitering Discharge Discharge Diagnosis / Problem: term delivered Discharge Goals Goal(s): Routine recovery after delivery Activity Recommendations Activity Limitations: as noted below Lifting Limitations: no more than 10 pounds Exercise/Sports Limitations: gradually increase as tolerated, until after follow-up appointment May Resume Sexual Activity: after follow-up appointment Shower/Bathe: no limitations Driving or Machine Use: resume 3 days after discharge . Instructions / Follow-Up Instructions / Follow-Up ACTIVITY RECOMMENDATIONS: * Gradual return to full activity over the next 2-3 weeks. * No lifting - nothing heavier than baby over the next 2-3 weeks. * Do not engage in vigorous exercise, sexual activity or sports until cleared by your physician. * Do not drive or operate any motorized equipment until cleared by your physician. * You may shower/bathe daily. BREAST CARE: If you are not breast feeding: * Wear a supportive bra 24 hours a day for one to two weeks. * Avoid stimulating your breasts and nipples as much as possible during the first few weeks after delivery. * When taking a shower, have the warm water hit your back, not breasts. * When your breasts feel full, apply ice packs. Usually three to four times a day helps ease the discomfort. * Take a mild pain medication (Tylenol/Motrin) when you are uncomfortable. If breast feeding: * Use breast milk to lubricate nipples. Lansinoh cream may be used for sore nipples. You do not need to remove cream prior to breast feeding. If using a different brand of cream, check the label for directions regarding removal of cream prior to nursing. * Wear a supportive bra. * If having problems with breasts or breast feeding, call a sales representative consultant or your health care provider. EPISIOTOMY CARE: After delivery, if you have an episiotomy (stitches), the following steps will ease discomfort and aid healing. * For the first 24 hours after delivery, place ice packs next to your episiotomy to help reduce swelling. * After the first 24 hour-period, sitz baths, either portable or in the tub, are suggested. A shower with a shower arm sprayed over the episiotomy may be comforting. * Delmy care should be done after each voiding and bowel movement. Squirt warm water from a plastic bottle over the perineum (region of the body between the anus and urinary opening) and pat dry. * Use Dermoplast to ease discomfort. Shake container. [place] directly over the episiotomy. * Place a Tucks on a clean sanitary pad next to your episiotomy. OVER THE COUNTER MEDICATION: * For discomfort or pain, you may use Acetaminophen (Tylenol), Ibuprofen (Advil ), or Naproxen (Aleve) following the package directions. * For constipation you may use Colace following the package directions. SPECIAL CARE INSTRUCTIONS: When you are discharged from the hospital, it is important for you to follow the instructions listed below: * During the first week at home, you should be able to care for yourself and your baby. In addition, the usual light household activities are encouraged. * Limit your activities to the way you feel. Do not try to clean the house or move furniture. Be sensible. * If you actively engage in sports and have done so up until the time of your delivery, you may resume these activities as soon as you feel able. This may take up to one month or even longer. Use good judgment. * Continue to take your vitamins for at least six weeks after the of your baby. * Your diet need not be limited unless you were on a special diet before your delivery. Breast-feeding mothers need around 2500 calories per day and at least 64-80 ounces of fluid per day (8 to 10 glasses). * You should eat foods from the four major food groups. Crash diets or fad diets are to be avoided. Eating lean meats, fresh fruits and vegetables, low-fat dairy products, high fiber foods and a regular exercise program, will help you get back to your pre- weight without putting your health at risk. * Constipation is sometimes a problem after delivery. Take a mild laxative as needed. If breast feeding, Milk of Magnesia is acceptable to use. You may use a suppository or Fleets enema if no episiotomy. * A daily shower or tub bath is suggested. Be sure to thoroughly and gently dry the perineum. * A bloody vaginal discharge will usually continue until around four weeks post . A small amount of bleeding may continue for as long as six weeks. Vaginal discharge changes from the bright red bleeding after delivery to pink then brownish and finally yellowish-pink before becoming white and disappearing. * Bleeding may increase with activity. Your first period may come in 4-8 weeks. If you are breast feeding, your period may be delayed even longer. * Finzel (sex) can begin whenever both you and your partner feel comfortable and do not have any form of genital infection. It is recommended that you wait until after your return appointment and discuss with your physician. If you have questions, please talk to your health care practitioner. A condom should be used to prevent infection and . * Foreplay, gentle intercourse and lubrication is very important the first several times to prevent pain. A water-based lubricant such as K-Y jelly or Astroglide may be used. * Tampons may be used six weeks after delivery. * Douching should be avoided for 6 weeks after delivery. * If you have RH negative blood and your baby is RH positive, you will receive RHOGAM by injection prior to discharge. The nurse will give you a card to keep with you that has the date and place that you received RHOGAM after delivery. * During your care, you had a Rubella screen done to check for the presence of rubella antibodies in your blood. If your test was negative, you will receive a Rubella vaccine prior to discharge. This vaccine may cause a fever, soreness at the injection site and flu-like symptoms. If these symptoms persist, notify your health care practitioner. is not advised for three months after a Rubella vaccine. There is a higher chance of having a baby with defects if conceived within three months of getting the vaccine. * If you were discharged 24 hours from delivery or before 48 hours: Visiting nurses will come to your home 48 hours after discharge to assess you and your baby. The visiting nurse will meet with you while you are in the hospital to arrange a time and get directions to your home. * Verbalizes understanding of car seat law as reviewed with patient nursing. * Car Seat hand-out given and reviewed with patient by nursing. * Shaken baby information reviewed with patient by nursing. Call you doctor if: * Heavy bleeding (saturating several pads an hour) or passing clots the size of your fist. * A fever >101 degrees F (38.3 degrees C) on two occasions four hours apart and/or chills. * Unusual pain in the pelvic or vaginal areas. * "Baby Blues" lasting longer than two weeks. If you have any questions or concerns, call your health care practitioner at . FOLLOW-UP VISIT: * Please call the office at to schedule a 6 week examination. It is important you keep this appointment. * It is important for you to make arrangements for either yearly or twice yearly check-ups thereafter. Current Hospital Diet Patient's current hospital diet: Regular OB Diet Discharge Diet Recommended Diet: Regular OB Diet Fluid Restriction: None Pending Studies Studies pending at discharge: no Medical Emergencies . Who to Call and When: Medical Emergencies: If at any time you feel your situation is an emergency, please call 911 immediately. . Non-Emergent Contact Non-Emergency issues call your: Primary Care Provider . . "Provider Documentation" section prepared by Renan Brunson. .
--- NOTE | 2017-10-18 09:03 | OB/GYN Progress Note ---
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 Subjective conversation w/ patient, physical exam Ambulation: ambulating normally Voiding: no voiding problems Passing Gas: Yes Diet Tolerance: Regular Diet Lochia: Small Feeding Type: Breast Feeding Objective Vital Signs Date Time Temp Pulse Resp B/P (MAP) Pulse Ox O2 Delivery O2 Flow Rate FiO2 10/18/17 08:00 36.7 86 18 121/72 (88) Room Air 10/17/17 23:20 36.6 82 18 125/77 (93) Room Air 10/17/17 23:20 Room Air 10/17/17 21:00 36.8 98 18 143/90 (107) Room Air 10/17/17 15:30 36.6 89 18 138/89 (105) 98 Room Air 10/17/17 15:30 98 Room Air 10/17/17 13:05 36.5 93 18 125/84 (98) 97 Room Air Physical Exam General Appearance: WELL-APPEARING, NO APPARENT DISTRESS Abdomen: non tender, soft Fundus: Firm Extremities: non-tender, normal inspection, no pedal edema Laboratory Results Last 24 Hours Test 10/18/17 06:13 White Blood Count 9.08 K/uL Red Blood Count 3.70 M/uL Hemoglobin 10.2 g/dL Hematocrit 31.2 % Mean Corpuscular Volume 84.3 fL Mean Corpuscular Hemoglobin 27.6 pg Mean Corpuscular Hemoglobin Concent 32.7 g/dl RDW Standard Deviation 46.4 fL RDW Coefficient of Variation 16.1 % Platelet Count 174 K/uL Mean Platelet Volume 10.7 fL Assessment and Plan Day Number: 2 Continue Routine Care: discharged
[2017-10-18 12:00] VITALS: BP_DIAS 72; PULSE 86; TEMP 36.7
--- NOTE | 2017-10-20 12:11 | EDITING REQUIRED CODING QUERY ---
CODING QUERY To promote full compliance with coding requirements relating to patient care, provider participation is requested in all cases of manager garage uncertainty. Please assist us with the question(s) below: Coding Question(s): Dr. Guidry, The delivery summary documents the following: The patient is a 32-year-old 7, para 3 at 39 weeks' gestation, who was admitted to labor and delivery on the afternoon of 10/16/2017 for an induction of labor secondary to elevated blood pressures in the office. PIH labs were normal. Please clarify the diagnosis for this finding: ( ) Gestational ( - induced) hypertension ( ) Transient hypertension ( ) Pre-existing hypertension ( X ) Other, please explain Also, please indicate the method of induction: ( ) Nation bulb dilation of cervix ( ) Cytotek or Cervidil ( ) P. O. ( ) cervical placement ( X) Medication, i.e. Pitocin ( X ) AROM ( ) Other, please explain Physician's Response(s): Preeclampsia without severe features Thank you for your time, Tracey Sifuentes, RADHA, DELI MANAGER
== END 2017-10-18 13:09 | disposition home or self-care (01) | DRG 775 ==
LOC: C.LD 16:48 → C.OPB 16:48 → C.LD 17:38 → C.OBG 10-17 00:10
PROVIDERS: ADMIT Obstetrics & Gynecology; ATTEND Obstetrics & Gynecology
PROC: 10907ZC Drainage of Amniotic Fluid, Therapeutic from Products of Conception, Via Natural or Artificial Opening (ICD-10-PCS; principal; 2017-10-16)
PROC: 3E033VJ Introduction of Other Hormone into Peripheral Vein, Percutaneous Approach (ICD-10-PCS; principal; 2017-10-16)
PROC: 10E0XZZ Delivery of Products of Conception, External Approach (ICD-10-PCS; principal; 2017-10-16)
DX: O14.94 Unspecified pre-eclampsia, complicating childbirth (principal); Z3A.39 39 weeks gestation of pregnancy; Z37.0 Single live birth

== ENCOUNTER 2017-10-20 13:10 | Emergency (ER) | payer OTHER ==
[~2017-10-20] VITALS: Ht 149.9 cm; Wt 75.1 kg
[~2017-10-20 13:10] MED LIST changes: +MTR600X PO
[2017-10-20 13:15] VITALS: TEMP 36.8; Ht 149.9 cm; Wt 75.1 kg
[2017-10-20] MEDS ORDERED: SODIUM CHLORIDE 0.9% 1000ML 1,000 ML IV STA (13:22)
--- NOTE | 2017-10-20 13:27 | EMERGENCY ROOM VISIT NOTE ---
History Report prepared by Raimundo: Mary Carlton Under the Supervision of: Dr. Milton Whitaker M.D. First contact with patient: 13:18 Chief Complaint: SWELLING TO EXTREMITY Stated Complaint: SWOLLEN R ANKLE History of Present Illness The patient is a 32 year old female 4 days with history of hypertension during who presents to the Emergency Room with complaints of right lower extremity swelling beginning yesterday. She describes the pain as "mild stiffness." She denies falling or twisting anything. 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 She denies any chest pain, changes in vision, difficulty breathing, headaches, urinary symptoms, or abdominal pain. She states she is bleeding vaginally and passing small clots, but she does not think this is abnormal since she gave recently. Patient states she does not need anything for pain right now. 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 Review of Systems See HPI for pertinent positives and negatives. A total of ten systems were reviewed and were otherwise negative. Past Medical & Surgical Medical Problems: (1) Backache (2) Elevated blood pressure affecting in third trimester, antepartum (3) High blood pressure affecting in third trimester, antepartum (4) (5) Term (6) Uterine contractions at greater than 20 weeks of gestation Family History Cancer Stroke Social History Smoking Status: Never Smoker Alcohol Use: none Marital Status: Housing Status: lives with family Occupation Status: unemployed Current/Historical Medications Scheduled Ferrous Sulfate (Ferrous Sulfate), 325 MG MT DAILYBB Vit W/ Ferrous Fumara (), 1 TAB PO HS Scheduled PRN Ibuprofen (Ibuprofen), 600 MG PO Q4H PRN for PAIN, MENENDEZ, CRAMPING OR FEVER Allergies Coded Allergies: No Known Allergies (Verified , ?, 10/20/17) Physical Exam Vital Signs Date Time Temp Pulse Resp B/P (MAP) Pulse Ox O2 Delivery O2 Flow Rate FiO2 10/20/17 14:37 86 20 134/92 98 Room Air 10/20/17 13:15 36.8 113 20 148/98 98 Room Air Physical Exam Physical Exam GENERAL: She is oriented to person, place, and time. She appears well- developed and well-nourished. She does not appear distressed. ____ HENT: Exam performed. Head: Normocephalic and atraumatic. Right Ear: External ear normal. No mastoid tenderness. Left Ear: External ear normal. No mastoid tenderness. Mouth/Throat: The oropharynx is clear and moist. No trismus in the jaw. No dental abscesses or uvula swelling. No oropharyngeal exudate or tonsillar abscesses. ____ EYES: Conjunctivae and EOM are normal. Pupils are equal, round, and reactive to light. Right eye exhibits no discharge. Left eye exhibits no discharge. No scleral icterus. ____ NECK: Normal range of motion. Neck supple. No JVD present. No spinous process tenderness present. No carotid bruit present. No rigidity. No tracheal deviation and normal range of motion present. No Brudzinski's sign and no Kernig 's sign noted. ____ CV: Normal rate, regular rhythm, normal heart sounds and intact distal pulses. There is no peripheral edema. Palpable radial pulses bue. ____ PULM/CHEST: Effort normal and breath sounds normal. No respiratory distress. No stridor. She has no wheezes. She has no rales. Chest Wall: She exhibits no tenderness. ____ ABD: The abdomen is soft. Gravid. Bowel sounds are normal. She has no distension. No mass is present. There is no tenderness. There is no rebound, no guarding, no Ajckson's sign and no tenderness at McBurney's point. Rovsig negative MUSC/SKEL: Normal range of motion. There is no peripheral edema, tenderness or deformity. Pain on palpation of the right calf and popliteal area. LYMPH: No cervical adenopathy. ____ NEURO: She is alert and oriented to person, place, and time. She has normal strength. No cranial nerve deficit or sensory deficit. Coordination and gait normal. GCS eye subscore is 4. GCS verbal subscore is 5. GCS motor subscore is 6. Cerebellar tests wnl. ____ SKIN: Skin is warm and dry. She is not diaphoretic. ____ PSYCH: She has a normal mood and affect. Her behavior is normal. Judgment and thought content normal. ____ Medical Decision & Procedures ER Provider Diagnostic Interpretation: Radiology results as stated below per my review and radiologist interpretation: ULTRASOUND R VENOUS DOPP LOWER EXT UNILAT CLINICAL HISTORY: Right leg swelling COMPARISON STUDY: 09/25/2017 FINDINGS: Real-time and color flow Doppler imaging were performed. Flow was seen within the femoral, popliteal and calf veins with no intraluminal thrombus demonstrated. The saphenous vein is patent. IMPRESSION: No evidence of right lower extremity DVT. Electronically signed by: Raphael Mcbride M.D. 10/20/2017 2:01 PM Dictated Date/Time: 10/20/2017 2:00 PM Laboratory Results 10/20/17 13:30 Red Blood Count 3.80, Mean Corpuscular Volume 84.5, Mean Corpuscular Hemoglobin 27.9, Mean Corpuscular Hemoglobin Concent 33.0, Mean Platelet Volume 9.3, Neutrophils (%) (Auto) 70.5, Lymphocytes (%) (Auto) 20.0, Monocytes (%) (Auto) 5.9, Eosinophils (%) (Auto) 3.1, Basophils (%) (Auto) 0.1, Neutrophils # (Auto) 6.27, Lymphocytes # (Auto) 1.78, Monocytes # (Auto) 0.53, Eosinophils # (Auto) 0.28, Basophils # (Auto) 0.01 10/20/17 13:30 Test 10/20/17 13:30 10/20/17 14:15 White Blood Count 8.91 K/uL (4.8-10.8) Red Blood Count 3.80 M/uL (4.2-5.4) Hemoglobin 10.6 g/dL (12.0-16.0) Hematocrit 32.1 % (37-47) Mean Corpuscular Volume 84.5 fL (80-100) Mean Corpuscular Hemoglobin 27.9 pg (25-34) Mean Corpuscular Hemoglobin Concent 33.0 g/dl (32-36) Platelet Count 210 K/uL (130-400) Mean Platelet Volume 9.3 fL (7.4-10.4) Neutrophils (%) (Auto) 70.5 % Lymphocytes (%) (Auto) 20.0 % Monocytes (%) (Auto) 5.9 % Eosinophils (%) (Auto) 3.1 % Basophils (%) (Auto) 0.1 % Neutrophils # (Auto) 6.27 K/uL (1.4-6.5) Lymphocytes # (Auto) 1.78 K/uL (1.2-3.4) Monocytes # (Auto) 0.53 K/uL (0.11-0.59) Eosinophils # (Auto) 0.28 K/uL (0-0.5) Basophils # (Auto) 0.01 K/uL (0-0.2) RDW Standard Deviation 47.9 fL (36.4-46.3) RDW Coefficient of Variation 16.8 % (11.5-14.5) Immature Granulocyte % (Auto) 0.4 % Immature Granulocyte # (Auto) 0.04 K/uL (0.00-0.02) Prothrombin Time 9.4 SECONDS (9.0-12.0) Prothromb Time International Ratio 0.9 (0.9-1.1) Activated Partial Thromboplast Time 25.2 SECONDS (21.0-31.0) Partial Thromboplastin Ratio 1.0 Anion Gap 4.0 mmol/L (3-11) Est Creatinine Clear Calc Drug Dose 117.0 ml/min Estimated GFR () 139.0 Estimated GFR (Non- 120.0 BUN/Creatinine Ratio 19.1 (10-20) Calcium Level 8.5 mg/dl (8.5-10.1) Total Bilirubin 0.2 mg/dl (0.2-1) Direct Bilirubin < 0.1 mg/dl (0-0.2) Aspartate Amino Transf (AST/SGOT) 27 U/L (15-37) Alanine Aminotransferase (ALT/SGPT) 24 U/L (12-78) Alkaline Phosphatase 104 U/L (45-117) Total Protein 6.8 gm/dl (6.4-8.2) Albumin 2.4 gm/dl (3.4-5.0) Urine Color YELLOW Urine Appearance CLEAR (CLEAR) Urine pH 7.0 (4.5-7.5) Urine Specific [place] 1.009 (1.000-1.030) Urine Protein NEG (NEG) Urine Glucose (UA) NEG (NEG) Urine Ketones NEG (NEG) Urine Occult Blood 3+ (NEG) Urine Nitrite NEG (NEG) Urine Bilirubin NEG (NEG) Urine Urobilinogen NEG (NEG) Urine Leukocyte Esterase LARGE (NEG) Urine WBC (Auto) 10-30 /hpf (0-5) Urine RBC (Auto) >30 /hpf (0-4) Urine Hyaline Casts (Auto) 1-5 /lpf (0-5) Urine Epithelial Cells (Auto) 10-20 /lpf (0-5) Urine Bacteria (Auto) 1+ (NEG) Urine Yeast (Auto) (NONE PRSENT) Laboratory results reviewed by me Medications Administered Medications (Trade) Dose Ordered Sig/Hector Route Start Time Stop Time Status Last Admin Dose Admin Sodium Chloride 1,000 ml @ 999 mls/hr Q1H1M STAT IV 10/20/17 13:22 10/20/17 14:22 DC 10/20/17 13:22 999 MLS/HR ED Course 1319: The patient was evaluated in room A2. A complete history and physical exam was performed. 1322: Sodium Chloride 1000 ml @ 999 mls/hr IV 1455: Vital signs are stable. Repeat blood pressure 134/92 mildly elevated. Labs within normal limits. Ultrasound within normal limits. Patient has no evidence of HELLP syndrome or preeclampsia. No lower extremity edema , no pain on palpation of the right upper quadrant, patients platelet count is within normal limits, AST and ALT are normal. No protein in the urine. No headaches, no changes in vision. Patient's elevated blood pressure is thought to be chronic. She notes she had hypertension during her . I discussed this with the patients SAMPLE TAILOR educational advisor at [facility] who agreed and stated he will follow up with her on Sunday. DISCHARGE - Plan of care discussed with patient and questions answered. The patient was given both verbal and printed discharge instructions. The patient verbalized understanding and ability to comply. The patient is to seek outpatient follow up as noted in the discharge instructions. The patient verbalized understanding and ability to comply. The patient is discharged in stable condition. The patient was instructed to return for worsening symptoms. Medical Decision Vital signs are stable. Repeat blood pressure 134/92 mildly elevated. Labs within normal limits. Ultrasound within normal limits. Patient has no evidence of HELLP syndrome or preeclampsia. No lower extremity edema, no pain on palpation of the right upper quadrant, patients platelet count is within normal limits, AST and ALT are normal. No protein in the urine. No headaches, no changes in vision. Patient's elevated blood pressure is thought to be chronic. She notes she had hypertension during her . I discussed this with the patients SAMPLE TAILOR educational advisor at [facility] who agreed and stated he will follow up with her on Sunday. DISCHARGE - Plan of care discussed with patient and questions answered. The patient was given both verbal and printed discharge instructions. The patient verbalized understanding and ability to comply. The patient is to seek outpatient follow up as noted in the discharge instructions. The patient verbalized understanding and ability to comply. The patient is discharged in stable condition. The patient was instructed to return for worsening symptoms. Medication Reconcilliation Current Medication List: was personally reviewed by me Blood Pressure Screening Patient's blood pressure: Elevated blood pressure Blood pressure disposition: Did not require urgent referral Impression Primary Impression: Leg pain Additional Impression: Hypertension Scribe Attestation The scribe's documentation has been prepared under my direction and personally reviewed by me in its entirety. I confirm that the note above accurately reflects all work, treatment, procedures, and medical decision making performed by me. The chart was completed utilizing [employer] Speech voice recognition software. Grammatical errors, random word insertions, pronoun errors, and incomplete sentences are an occasional consequence of this system due to software limitations, ambient noise, and hardware issues. Any formal questions or concerns about the content, text, or information contained within the body of this dictation should be directly addressed to the physician for clarification. Departure Information Dispostion Home / Self-Care Referrals Alfonso Whitlock M.D. (PCP) Forms HOME CARE DOCUMENTATION FORM, IMPORTANT VISIT INFORMATION, WORK / SCHOOL INSTRUCTIONS Patient Instructions My [facility] Additional Instructions Follow-up with your SAMPLE TAILOR on Sunday. Problem Qualifiers Primary Impression: Leg pain Laterality: unspecified laterality Qualified Codes: M79.606 - Pain in leg, unspecified Additional Impression: Hypertension Hypertension type: unspecified Qualified Codes: I10 - Essential (primary) hypertension
[2017-10-20 13:40] LABS: BASO % 0.1 %; BASO ABS # 0.01 K/uL (0-0.2); EOS % 3.1 %; EOS ABS # 0.28 K/uL (0-0.5); HEMATOCRIT 32.1 % (37-47); HEMOGLOBIN 10.6 g/dL (12.0-16.0); IG# 0.04 K/uL (0.00-0.02); LYMPH ABS # 1.78 K/uL (1.2-3.4); MEAN CELL VOLUME 84.5 fL (80-100); MEAN CORPUSCULAR HEMOGLOBIN 27.9 pg (25-34); MEAN PLATELET VOLUME 9.3 fL (7.4-10.4); MONO % 5.9 %; MONO ABS # 0.53 K/uL (0.11-0.59); NEUT % 70.5 %; NEUT ABS # 6.27 K/uL (1.4-6.5); PLATELET COUNT 210 K/uL (130-400); RED CELL DISTRIBUTION WIDTH CV 16.8 % (11.5-14.5); RED CELL DISTRIBUTION WIDTH SD 47.9 fL (36.4-46.3); WHITE BLOOD COUNT 8.91 K/uL (4.8-10.8)
[2017-10-20 13:54] LABS: INR 0.9 (0.9-1.1); PTT PATIENT 25.2 SECONDS (21.0-31.0)
[2017-10-20 13:58] LABS: ALBUMIN 2.4 gm/dl (3.4-5.0); ALT/SGPT 24 U/L (12-78); AST/SGOT 27 U/L (15-37); BLOOD UREA NITROGEN 12 mg/dl (7-18); CALCIUM 8.5 mg/dl (8.5-10.1); CARBON DIOXIDE 25 mmol/L (21-32); CREATININE 0.61 mg/dl (0.60-1.20); GLUCOSE 85 mg/dl (70-99); POTASSIUM 3.8 mmol/L (3.5-5.1); SODIUM 137 mmol/L (136-145)
[2017-10-20 14:01] LABS: ALKALINE PHOSPHATASE 104 U/L (45-117); TOTAL PROTEIN 6.8 gm/dl (6.4-8.2)
--- NOTE | 2017-10-20 14:02 | DIAGNOSTIC IMAGING REPORT ---
ULTRASOUND R VENOUS DOPP LOWER EXT UNILAT CLINICAL HISTORY: Right leg swelling COMPARISON STUDY: 09/25/2017 FINDINGS: Real-time and color flow Doppler imaging were performed. Flow was seen within the femoral, popliteal and calf veins with no intraluminal thrombus demonstrated. The saphenous vein is patent. IMPRESSION: No evidence of right lower extremity DVT. Electronically signed by: Raphael Mcbride M.D. 10/20/2017 2:01 PM Dictated Date/Time: 10/20/2017 2:00 PM
[2017-10-20 14:37] VITALS: BP 134/92; PULSE 86; O2SAT 98
== END 2017-10-20 15:06 | disposition home or self-care (01) ==
LOC: C.EDB 13:12 → C.EDA 15:06
DX: M79.604 Pain in right leg (principal); Z79.899 Other long term (current) drug therapy

== ENCOUNTER 2018-02-20 10:38 | Day surgery (SDC) | payer OTHER ==
[2018-02-15 14:05] VITALS: BMI 27.0
[~2018-02-20] VITALS: Ht 152.4 cm; Wt 64.1 kg
[~2018-02-20 10:38] MED LIST changes: +CEFOXITIN IV 2,000 MG in DEXTROSE 5% 50ML 50 ML IV SCH; +FAMO40TA6 PO; -FRRS300 MT; +JUICE PLUS PO; +LACTATED RINGER'S 1000ML 1,000 ML IV SCH; -MTR600X PO; -PREN-83 PO
[2018-02-20 10:51] VITALS: Ht 152.4 cm; Wt 64.1 kg
[2018-02-20] MEDS ORDERED: PROPOFOL IV EMULSION 10 MG/ML 20 ML VIAL ONE (13:38)
[2018-02-20] MEDS ORDERED: LIDOCAINE HCL 2% 2 ML VIAL (20MG/ML) ONE (13:38)
[2018-02-20] MEDS ORDERED: MIDAZOLAM HCL 1 MG/ML 2ML VIAL ONE (13:38)
[2018-02-20] MEDS ORDERED: ROCURONIUM BROMIDE 10 MG/ML 5 ML VIAL ONE (13:38)
[2018-02-20] MEDS ORDERED: ONDANSETRON INJ 2 MG/ML 2 ML VIAL ONE (13:38)
[2018-02-20] MEDS ORDERED: FENTANYL CITRATE INJ 50 MCG/1 ML 2 ML VIAL ONE ×3 (13:39→15:18)
--- NOTE | 2018-02-20 13:44 | History & Physical Bridge Note ---
H&P Re-Evaluation Bridge Note: I have examined the patient, reviewed the History & Physical and in the interval since the performance of the History & Physical I have noted the following changes of clinical significance: No changes noted
[2018-02-20] MEDS ORDERED: BUPIVACAINE 0.5 % 5 MG/1 ML PF 10ML VIAL ONE ×2 (14:03→14:24)
--- NOTE | 2018-02-20 14:54 | [facility] Post Operative Brief Note ---
Immediate Operative Summary Operative Date Feb 20, 2018. Pre-Operative Diagnosis Biliary Sludge, Biliary Colic Post-Operative Diagnosis same Procedure(s) Performed Laparoscopic Cholecystectomy Surgeon Dr. River Venetian Blind Tape Cutter Surgeon(s) Madeline Bertrand PA-C Estimated Blood Loss 2mL Findings Consistent with Post-Op Diagnosis Critical view of safety obtained Specimens A.) Gallbladder and contents Drains None Anesthesia Type General Complication(s) none Disposition Accompanied Pt To Recover: no Disposition: Recovery Room / PACU
--- NOTE | 2018-02-20 14:56 | [facility] Operative Report ---
Operative Report Operative Date Feb 20, 2018. Pre-Operative Diagnosis Biliary Sludge, Biliary Colic Post-Operative Diagnosis Same Procedure(s) Performed Laparoscopic cholecystectomy Surgeon Dr. River Assistant Sales Manager Surgeon(s) Madeline Bertrand PA-C Estimated Blood Loss 2mL Findings Critical view of safety obtained. Minimal inflammation of the gallbladder. Cystic artery and duct doubly clipped and divided Specimens A.) Gallbladder and contents Drains None Anesthesia General Complication(s) None Disposition Recovery Room / PACU Indications 32-year-old female with postprandial abdominal pain right upper quadrant, endoscopic ultrasound revealed sludge within the gallbladder lumen. Plan for laparoscopic cholecystectomy with possible cholangiogram. The risks of the procedure were discussed, all questions were answered, and the patient agreed to proceed with surgery as planned. Description of Procedure The patient was properly identified, consented, and taken to the operating room where she was placed in the supine position. General endotracheal anesthesia was induced. SCDs and a safety belt were placed. Preoperative antibiotics were administered. The patient's abdomen was prepped and draped in the standard sterile fashion. A surgical timeout was performed and all parties were in agreement that this was the correct patient and procedure to be performed and we continued as planned. An incision was made superior and to the left of the umbilicus overlying the rectus muscle and the Veress needle was inserted. Saline drop test confirmed entry into the peritoneum. The abdomen was insufflated with carbon dioxide which the patient tolerated without incident. The abdomen was then entered using the Optiview technique and a 5 mm trocar. The laparoscope was inserted and no damage from initial trocar or Veress needle placement was noted, no gross abnormalities were noted within the 4 quadrants of the abdomen. An 11 mm port was placed in the subxiphoid position and two 5 mm ports were then placed in the right subcostal position. The patient was placed in reverse Trendelenburg position and rotated towards the left. The dome of the gallbladder was retracted towards the left upper quadrant and the infundibulum was retracted toward the right lower quadrant revealing Calot' s triangle. There was minimal inflammation to the gallbladder. Peritoneal attachments were taken down with electrocautery and blunt dissection. The cystic duct and artery were circumferentially dissected. A window of safety was obtained showing the cystic duct entering the gallbladder with no aberrant structures noted. The cystic duct and artery were doubly clipped and divided. The gallbladder was then lifted off the gallbladder fossa with electrocautery. The gallbladder was placed in an Endo Catch bag and removed through the subxiphoid port site. The right upper quadrant was irrigated and hemostasis was found to be good. 5 mm trochars were removed under direct visualization and the abdomen was allowed to collapse. The subxiphoid port site fascia was not closed. The wound was irrigated, and the skin of all ports was closed with 4 -0 Monocryl subcuticular sutures. Dermabond was placed over the wounds. The patient was extubated in the operating room and taken to the PACU where she recovered without apparent incident. All sponge, instrument and needle counts were correct at the conclusion of the procedure. The patient tolerated the procedure well. The physician's veterinary assistant was present and scrubbed for the entirety of the case and was essential in positioning the patient, prepping and draping, retraction and exposure, driving the laparoscope, removal of the gallbladder, closure the incisions, and placement of the dressings. I attest to the content of the Intraoperative Record and any orders documented therein. Any exceptions are noted below.
[2018-02-20] MEDS ORDERED: SODIUM CHLORIDE 0.9% 1000ML 1,000 ML IV SCH (15:12)
[2018-02-20] MEDS ORDERED: ATROPINE SULFATE 0.1 MG/ML 5ML SYR IV PRN (15:15)
[2018-02-20] MEDS ORDERED: FLUMAZENIL 0.1 MG/1 ML 10 ML VIAL IV PRN (15:15)
[2018-02-20] MEDS ORDERED: OXYCODONE/ACETAMINOPHEN 5-325 TAB PO PRN ×2 (15:15)
[2018-02-20] MEDS ORDERED: OXYC-57 PO (15:15)
[2018-02-20] MEDS ORDERED: FENTANYL CITRATE INJ 50 MCG/1 ML 2 ML VIAL IV PRN (15:15)
[2018-02-20] MEDS ORDERED: EpHEDrine SULFATE INJ 50 MG/ML AMP IV PRN (15:15)
[2018-02-20] MEDS ORDERED: ONDANSETRON INJ 2 MG/ML 2 ML VIAL IV PRN ×2 (15:15)
[2018-02-20] MEDS ORDERED: PROMETHAZINE HCL INJ 12.5 MG in SODIUM CHLORIDE 0.9% 50ML 50 ML IV PRN (15:15)
[2018-02-20] MEDS ORDERED: NALOXONE HCL 0.4 MG/1 ML VIAL/CARP IV PRN (15:15)
--- NOTE | 2018-02-20 15:16 | Discharge Instructions ---
Discharge Instructions Date of Service Feb 20, 2018. Admission Reason for Admission: Biliary Colic, Gallbladder Sludge Discharge Discharge Diagnosis / Problem: Biliary Colic, Gallbladder Sludge Discharge Goals Goal(s): Decrease discomfort, Improve function Activity Recommendations Activity Limitations: as noted below Lifting Limitations: no more than 10 pounds Exercise/Sports Limitations: until after follow-up appointment May Resume Sexual Activity: after follow-up appointment Shower/Bathe: tomorrow Driving or Machine Use: resume 1 day after discharge . Instructions / Follow-Up Instructions / Follow-Up You have surgical glue, Dermabond, over your incisions. You may shower tomorrow , but please do not soak or scrub your incisions. Please follow-up with Dr. River in the General Surgery Clinic in 1-2 weeks. Please call the clinic with any questions or concerns at [phone] Current Hospital Diet Patient's current hospital diet: Discharge Diet Recommended Diet: Regular Diet Procedures Procedures Performed: Laparoscopic Cholecystectomy Pending Studies Studies pending at discharge: yes List of pending studies: Pathology report. Medical Emergencies . Who to Call and When: Medical Emergencies: If at any time you feel your situation is an emergency, please call 911 immediately. . Non-Emergent Contact Non-Emergency issues call your: Primary Care Provider, Surgeon Call Non-Emergent contact if: temperature is above 101.5, your pain is not controlled, wound has increased drainage, wound has increased redness . "Provider Documentation" section prepared by Madeline Bertrand. .
--- NOTE | 2018-02-20 15:51 | Anesthesiology Progress Note ---
Anesthesia Post Op Note Date & Time Feb 20, 2018 at 15:51 Vital Signs Pain Intensity: 6.0 Vital Signs Past 12 Hours Date Time Temp Pulse Resp B/P (MAP) Pulse Ox O2 Delivery O2 Flow Rate FiO2 02/20/18 15:37 64 16 100 02/20/18 15:37 64 16 02/20/18 15:36 145/89 02/20/18 15:32 55 21 02/20/18 15:32 54 21 100 02/20/18 15:31 135/87 02/20/18 15:27 55 16 02/20/18 15:27 55 16 100 02/20/18 15:26 54 25 02/20/18 15:26 54 25 140/86 100 02/20/18 15:21 57 20 02/20/18 15:21 58 20 140/83 100 02/20/18 15:16 81 21 02/20/18 15:16 79 21 136/89 100 02/20/18 15:11 96 19 154/77 100 02/20/18 15:11 36.6 87 16 154/77 100 Oxymask 10 02/20/18 15:11 97 19 Notes Mental Status: alert / awake / arousable, participated in evaluation Pt Amnestic to Procedure: Yes Nausea / Vomiting: adequately controlled Pain: adequately controlled Airway Patency, RR, SpO2: stable & adequate BP & HR: stable & adequate Hydration State: stable & adequate Anesthetic Complications: no major complications apparent
[2018-02-20 16:40] VITALS: BP 126/75; PULSE 63; TEMP 37.2; O2SAT 97
[2018-02-20 17:10] VITALS: BP 142/78; PULSE 60; TEMP 36.8; O2SAT 100
[2018-02-20 17:33] VITALS: BP 130/76; PULSE 63; TEMP 36.9; O2SAT 100
== END 2018-02-20 18:00 | disposition home or self-care (01) ==
LOC: C.ACU 10:38
PROVIDERS: ATTEND Surgery
DX: K83.8 Other specified diseases of biliary tract (principal); K80.50 Calculus of bile duct without cholangitis or cholecystitis without obstruction; Z79.899 Other long term (current) drug therapy